=== PATIENT | male | born 1990 | race African-American/Black ===

== ENCOUNTER 2016-11-30 23:52 | Emergency (ER) | payer OTHER | END 2016-12-01 02:16 | disposition left against medical advice (07) | LOC: CED 23:52 | DX: Z53.21 Procedure and treatment not carried out due to patient leaving prior to being seen by health care provider (principal) ==

== ENCOUNTER 2016-12-03 13:08 | Emergency (ER) | payer OTHER ==
[2016-12-03 13:17] LABS: URINE SOURCE CLEAN CATCH
[2016-12-03 13:23] LABS: URINE APPEARANCE TURBID; URINE BILIRUBIN NEG (NEG); URINE BLOOD NEG (NEG); URINE COLOR YELLOW; URINE GLUCOSE NEG (NEG); URINE KETONE NEG (NEG); URINE LEUKOCYTE ESTERASE NEG (NEG); URINE NITRATE NEG (NEG); URINE PH 7.5 (5-8); URINE PROTEIN NEG (NEG); URINE SPECIFIC GRAVITY 1.028 (1.003-1.035)
[2016-12-03 13:48] LABS: CULTURE INDICATED? NO; URBCS1 AUWI 0-2 /[HPF] (0-2); URINE BACTERIA AUWI NEG (NEGATIVE); UWBCS1 AUWI 0-2 (0-5)
[2016-12-03 13:49] LABS: URINE AMORPHOUS SEDIMENT AMORP PHOSPHATES; URINE TRICHOMONAS NEGATIVE
[2016-12-05 16:46] LABS: CHLAMYDIA TRACH Not Detected (Not Detected); N GONOR Not Detected (Not Detected)
== END 2016-12-03 13:15 | disposition home or self-care (01) ==
LOC: CFTX 13:08
PROVIDERS: Nurse Practitioner
DX: Z20.2 Contact with and (suspected) exposure to infections with a predominantly sexual mode of transmission (principal); Z98.890 Other specified postprocedural states
CPT/HCPCS: 81003; 87491; 87591; 99283

== ENCOUNTER 2017-02-03 16:50 | Emergency (ER) | payer OTHER ==
--- NOTE | ~2017-02-03 | CR170 ---
[facility] A Service of [facility] & [facility] RADIOLOGY TEXT RESULTS PATIENT: GRETEL CASILLAS LOCATION: CFTX : 91 UNIT #: [id number] AGE: [address]: Aranza Clarke APRN SEX: M ORDER DR: [id number] [facility] [address]. [place], [place] [address] [id number] E MR#: [id number] Acc #: [id number] NAME: GRETEL CASILLAS : 1990 SEX: M STUDY DATE/TIME: 02/03/2017 18:02 UNIT: [facility] ROOM: STUDY DESCRIPTION: CR Knee 2 Views Rt Attending Physician: Aranza Clarke A.P.R.N. Ordering Physician: Ed Thom Rivera M.D. Primary Care Physician: Manuel Goldberg M.D. MEDICAL IMAGING REPORT This report is preliminary unless electronic signature is present EXAM Right knee radiograph INDICATIONS Right knee pain. Prior ORIF of a proximal tibia fracture. FINDINGS 2 views of the right knee without comparison. There is no acute fracture or dislocation. There is intramedullary nail in the proximal tibia with two proximal screws. There is some mild medial joint space narrowing. IMPRESSION No acute findings. Dictated by... Nitin Vargas M.D. THIS IS AN ELECTRONICALLY VERIFIED REPORT Nitin Vargas M.D. at 02/03/2017 9:46 PM RPC/bartr TD: 02/03/2017 19:15 JOB #: [id number] MEDICAL IMAGING REPORT Page 1 of 1 COPY
--- NOTE | ~2017-02-03 | CR253 ---
[facility] A Service of [facility] & [facility] RADIOLOGY TEXT RESULTS PATIENT: GRETEL CASILLAS LOCATION: CFTX : 91 UNIT #: [id number] AGE: [address]: Aranza Clarke APRN SEX: M ORDER DR: [id number] [facility] [address]. [place], [place] [address] [id number] E MR#: [id number] Acc #: [id number] NAME: GRETEL CASILLAS : 1990 SEX: M STUDY DATE/TIME: 02/03/2017 18:03 UNIT: [facility] ROOM: STUDY DESCRIPTION: CR Tibia and Fibula 2 Views Rt Attending Physician: Aranza Clarke A.P.R.N. Ordering Physician: Ed Thom Rivera M.D. Primary Care Physician: Manuel Goldberg M.D. MEDICAL IMAGING REPORT This report is preliminary unless electronic signature is present EXAM Right tibia INDICATION Right tibial fracture. Right tibial pain. FINDINGS 2 views of the right tibia and fibula without comparison. There has been prior proximal tibia fracture. No prior midshaft fibular fracture. There is an intramedullary nail transfixing the fracture. Interlocking screws are within normal limits. IMPRESSION No acute findings. Dictated by... Nitin Vargas M.D. THIS IS AN ELECTRONICALLY VERIFIED REPORT Nitin Vargas M.D. at 02/03/2017 9:46 PM DIANA/lolis TD: 02/03/2017 19:12 JOB #: [id number] MEDICAL IMAGING REPORT Page 1 of 1 COPY
== END 2017-02-03 18:47 | disposition home or self-care (01) ==
LOC: CFTX 16:50 → CED 16:50 → CFTX 17:59
DX: M25.561 Pain in right knee (principal); M79.661 Pain in right lower leg
CPT/HCPCS: 73560; 73590; 99284